=== PATIENT | male | born 1990 | race Caucasian/White ===

== ENCOUNTER 2019-10-20 18:14 | Inpatient (IN) | payer MEDICAID, OTHER ==
[~2019-10-20] VITALS: Ht 180.3 cm; Wt 66.8 kg
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
[2019-10-20] MEDS ORDERED: SODIUM CHLORIDE 0.9% 1,000ML IVBOLUS ONE (18:30)
[2019-10-20] MEDS ORDERED: ACETAMINOPHEN 325 MG TABLET PO ONE (18:30)
[2019-10-20] MEDS ORDERED: SODIUM CHLORIDE FLUSH 10ML SYR IVF ONE (18:30)
--- NOTE | 2019-10-20 18:40 | NUR ---
THIS RN IN TO START PIV, IMAGING BEDSIDE.
[2019-10-20] MEDS ORDERED: ACETAMINOPHEN 325 MG TABLET ONE (18:41)
[2019-10-20 18:49] LABS: MEAN CORPUSCULAR HEMOGLOBIN 32.4 pg (27.5-34.5); MEAN CORPUSCULAR HGB CONC 32.7 g/dL (33.2-36.2); MEAN PLATELET VOLUME 8.2 fL (7.4-10.4); PLATELET COUNT 631 x10^3/uL (130-400); RED CELL DISTRIBUTION WIDTH 13.2 % (9.4-14.8)
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
[2019-10-20 18:59] LABS: ALANINE AMINOTRANSFERASE 23 U/L (12-78); ALBUMIN 3.7 g/dL (3.4-5.0); ANION GAP 8 mmol/L (5-15); CHLORIDE 100 mmol/L (98-107); CREATININE 1.18 mg/dL (0.7-1.3)
[2019-10-20 19:00] LABS: BASOPHILS # (AUTO) 0.06 x10^3/uL (0-0.1); BASOPHILS % (AUTO) 0 % (0-1); EOSINOPHILS # (AUTO) 0.09 x10^3/uL (0-0.4); EOSINOPHILS % (AUTO) 0 % (1-7); LYMPHOCYTES # (AUTO) 1.36 x10^3/uL (1-3.4); LYMPHOCYTES % (AUTO) 7 % (22-44); MD SCAN; MONOCYTES % (AUTO) 5 % (2-9); NEUTROPHILS # (AUTO) 17.84 x10^3/uL (1.8-6.8); NEUTROPHILS % (AUTO) 88 % (42-75)
[2019-10-20 19:01] LABS: ALKALINE PHOSPHATASE 77 U/L (45-117); BILIRUBIN,TOTAL 1.6 mg/dL (0.2-1.0)
[2019-10-20] MEDS ORDERED: AMPICILLIN/SULBACTAM 3 GM in SODIUM CHLORIDE 0.9% 100 ML IV ONE (19:30)
[2019-10-20] MEDS ORDERED: VANCOMYCIN PER PHARMACY MC PRN (19:30)
[2019-10-20] MEDS ORDERED: PLEASE ENTER ALLERGIES MC SCH (19:30)
[2019-10-20] MEDS ORDERED: CEFAZOLIN PMX 1GM/50ML 50 ML IV ONE (19:30)
[2019-10-20] MEDS ORDERED: VANCOMYCIN 1,400 MG in SODIUM CHLORIDE 0.9% 250 ML IV ONE (19:30)
[2019-10-20] MEDS: NICOTINE 21 MG/24 HR PATCH.TD24 TD SCH (20:00)
[2019-10-20] MEDS ORDERED: CEFAZOLIN PMX 1GM/50ML 50 ML ONE (20:04)
--- NOTE | 2019-10-20 20:19 | NUR ---
Report given to Charley ORNELAS
[2019-10-20 21:10] VITALS: BP 95/53
[2019-10-21 00:37] VITALS: BP 108/66
[2019-10-21] MEDS: CEFAZOLIN PMX 1GM/50ML 50 ML IV SCH ×4 (04:05→20:59)
[2019-10-21 07:01] LABS: MEAN CORPUSCULAR HEMOGLOBIN 31.9 pg (27.5-34.5); MEAN CORPUSCULAR HGB CONC 31.9 g/dL (33.2-36.2); MEAN CORPUSCULAR VOLUME 100.1 fL (81-97); MEAN PLATELET VOLUME 8.1 fL (7.4-10.4); PLATELET COUNT 609 x10^3/uL (130-400); RED BLOOD COUNT 3.42 x10^6/uL (4.38-5.82); RED CELL DISTRIBUTION WIDTH 12.9 % (9.4-14.8)
[2019-10-21 07:11] LABS: ANION GAP 8 mmol/L (5-15); CALCIUM 8.3 mg/dL (8.5-10.1); CHLORIDE 108 mmol/L (98-107); CREATININE 0.88 mg/dL (0.7-1.3)
[2019-10-21 08:05] VITALS: BP 92/56
[2019-10-21 08:16] LABS: MD YES
[2019-10-21 08:18] LABS: ANISOCYTOSIS 1+; BAND#(MANUAL) 0.62 x10^3/uL; BANDS%(MANUAL) 3 % (0-7); BASOS#(MANUAL) 0.21 x10^3/uL (0-0.1); BASOS% (MANUAL) 1 % (0-1); LYMPH#(MANUAL) 2.05 x10^3/uL (1-3.4); LYMPHS% (MANUAL) 10 % (22-44); MONOS#(MANUAL) 0.82 x10^3/uL (0.3-2.7); MONOS% (MANUAL) 4 % (2-9); SEG#(MANUAL) 16.81 x10^3/uL (1.8-6.8); SEGS% (MANUAL) 82 % (42-75)
[2019-10-21 08:19] LABS: <PLATELET ESTIMATE> INCREASED; <PLT MORPHOLOGY> NORMAL PLT MORPH
[2019-10-21 12:24] VITALS: BP 98/56
[2019-10-21] MEDS: NICOTINE 21 MG/24 HR PATCH.TD24 TD SCH (19:40)
[2019-10-21 19:44] VITALS: BP 100/62
[2019-10-21] MEDS: ONDANSETRON ODT 4 MG PO PRN (19:48)
[2019-10-21] MEDS: ALUMINUM/MAG/SIMETHICONE 30 ML UDC PO PRN (23:11)
[2019-10-21] MEDS: OXYcodone IR 5MG TABLET PO PRN (23:12)
[2019-10-21] MEDS: ACETAMINOPHEN 325 MG TABLET PO PRN (23:12)
[2019-10-21] MEDS: TRAZODONE 50MG TABLET PO PRN (23:16)
[2019-10-22 03:55] VITALS: BP 104/73
[2019-10-22] MEDS: CEFAZOLIN PMX 1GM/50ML 50 ML IV SCH ×3 (04:15→20:09)
[2019-10-22] MEDS: ONDANSETRON ODT 4 MG PO PRN ×3 (04:15→20:09)
[2019-10-22 06:24] LABS: CHLORIDE 110 mmol/L (98-107)
[2019-10-22 06:34] LABS: ALANINE AMINOTRANSFERASE 24 U/L (12-78); ALBUMIN 2.5 g/dL (3.4-5.0); ALKALINE PHOSPHATASE 80 U/L (45-117); ANION GAP 8 mmol/L (5-15); BILIRUBIN,TOTAL 1.2 mg/dL (0.2-1.0); CALCIUM 8.7 mg/dL (8.5-10.1); CREATININE 0.95 mg/dL (0.7-1.3); TOTAL PROTEIN 6.9 g/dL (6.4-8.2)
[2019-10-22 07:11] LABS: MEAN CORPUSCULAR HEMOGLOBIN 32.1 pg (27.5-34.5); MEAN CORPUSCULAR HGB CONC 32.1 g/dL (33.2-36.2); MEAN CORPUSCULAR VOLUME 99.9 fL (81-97); PLATELET COUNT 604 x10^3/uL (130-400); RED BLOOD COUNT 3.87 x10^6/uL (4.38-5.82); RED CELL DISTRIBUTION WIDTH 13.6 % (9.4-14.8)
[2019-10-22 07:13] LABS: BASOPHILS # (AUTO) 0.07 x10^3/uL (0-0.1); BASOPHILS % (AUTO) 1 % (0-1); EOSINOPHILS # (AUTO) 0.42 x10^3/uL (0-0.4); EOSINOPHILS % (AUTO) 3 % (1-7); LYMPHOCYTES # (AUTO) 2.82 x10^3/uL (1-3.4); LYMPHOCYTES % (AUTO) 20 % (22-44); MD SCAN; MONOCYTES # (AUTO) 1.01 x10^3/uL (0.2-0.8); MONOCYTES % (AUTO) 7 % (2-9); NEUTROPHILS % (AUTO) 70 % (42-75)
[2019-10-22 08:02] VITALS: BP 102/63
[2019-10-22 12:09] VITALS: BP 101/64
[2019-10-22] MEDS: ALUMINUM/MAG/SIMETHICONE 30 ML UDC PO PRN ×2 (14:06→20:09)
[2019-10-22] MEDS: NICOTINE 21 MG/24 HR PATCH.TD24 TD SCH (20:09)
[2019-10-22] MEDS: OXYcodone IR 5MG TABLET PO PRN (20:09)
[2019-10-22] MEDS: ACETAMINOPHEN 325 MG TABLET PO PRN (20:09)
[2019-10-22 20:11] VITALS: BP 102/65
[2019-10-22] MEDS: TRAZODONE 50MG TABLET PO PRN (21:58)
[2019-10-23] MEDS: ACETAMINOPHEN 325 MG TABLET PO PRN
[2019-10-23 00:02] VITALS: BP 101/65
[2019-10-23] MEDS: CEFAZOLIN PMX 1GM/50ML 50 ML IV SCH ×3 (04:12→20:17)
[2019-10-23] MEDS: ONDANSETRON ODT 4 MG PO PRN ×2 (04:13→13:12)
[2019-10-23] MEDS: ALUMINUM/MAG/SIMETHICONE 30 ML UDC PO PRN (04:13)
[2019-10-23 04:19] VITALS: BP 105/67
[2019-10-23 06:25] LABS: ANION GAP 6 mmol/L (5-15); CALCIUM 8.9 mg/dL (8.5-10.1); CHLORIDE 103 mmol/L (98-107)
[2019-10-23 06:26] LABS: BASOPHILS % (AUTO) 1 % (0-1); EOSINOPHILS # (AUTO) 0.54 x10^3/uL (0-0.4); EOSINOPHILS % (AUTO) 5 % (1-7); LYMPHOCYTES # (AUTO) 3.15 x10^3/uL (1-3.4); LYMPHOCYTES % (AUTO) 32 % (22-44); MD NO; MEAN CORPUSCULAR HGB CONC 32.4 g/dL (33.2-36.2); MEAN CORPUSCULAR VOLUME 98.9 fL (81-97); MEAN PLATELET VOLUME 8.6 fL (7.4-10.4); MONOCYTES # (AUTO) 0.76 x10^3/uL (0.2-0.8); MONOCYTES % (AUTO) 8 % (2-9); NEUTROPHILS % (AUTO) 54 % (42-75); PLATELET COUNT 751 x10^3/uL (130-400); RED BLOOD COUNT 3.51 x10^6/uL (4.38-5.82); RED CELL DISTRIBUTION WIDTH 13.5 % (9.4-14.8)
[2019-10-23 09:07] VITALS: BP 98/58
[2019-10-23 13:14] VITALS: BP 98/61
[2019-10-23] MEDS: NICOTINE 21 MG/24 HR PATCH.TD24 TD SCH (20:00)
[2019-10-23 20:18] VITALS: BP 114/72
[2019-10-24 02:30] VITALS: BP 107/53
[2019-10-24] MEDS: CEFAZOLIN PMX 1GM/50ML 50 ML IV SCH ×3 (05:00→21:50)
[2019-10-24] MEDS: DOCUSATE 100 MG CAPSULE PO PRN ×2 (05:00→21:50)
[2019-10-24 05:49] LABS: BASOPHILS # (AUTO) 0.24 x10^3/uL (0-0.1); BASOPHILS % (AUTO) 2 % (0-1); EOSINOPHILS # (AUTO) 0.42 x10^3/uL (0-0.4); EOSINOPHILS % (AUTO) 4 % (1-7); LYMPHOCYTES # (AUTO) 3.27 x10^3/uL (1-3.4); LYMPHOCYTES % (AUTO) 31 % (22-44); MD NO; MEAN CORPUSCULAR HEMOGLOBIN 31.4 pg (27.5-34.5); MEAN CORPUSCULAR HGB CONC 31.5 g/dL (33.2-36.2); MEAN CORPUSCULAR VOLUME 99.6 fL (81-97); MEAN PLATELET VOLUME 8.8 fL (7.4-10.4); MONOCYTES # (AUTO) 0.74 x10^3/uL (0.2-0.8); MONOCYTES % (AUTO) 7 % (2-9); NEUTROPHILS # (AUTO) 5.76 x10^3/uL (1.8-6.8); NEUTROPHILS % (AUTO) 55 % (42-75); PLATELET COUNT 793 x10^3/uL (130-400); RED BLOOD COUNT 3.57 x10^6/uL (4.38-5.82); RED CELL DISTRIBUTION WIDTH 13.3 % (9.4-14.8)
[2019-10-24 07:25] VITALS: BP 106/62
[2019-10-24 13:06] VITALS: BP 102/61
[2019-10-24 19:46] VITALS: BP 105/63
[2019-10-24] MEDS: NICOTINE 21 MG/24 HR PATCH.TD24 TD SCH (20:00)
[2019-10-24] MEDS: ONDANSETRON ODT 4 MG PO PRN (21:50)
[2019-10-25 00:42] VITALS: BP 104/60
[2019-10-25] MEDS: CEFAZOLIN PMX 1GM/50ML 50 ML IV SCH (05:06)
[2019-10-25 05:50] LABS: BASOPHILS # (AUTO) 0.27 x10^3/uL (0-0.1); BASOPHILS % (AUTO) 3 % (0-1); EOSINOPHILS # (AUTO) 0.36 x10^3/uL (0-0.4); EOSINOPHILS % (AUTO) 4 % (1-7); LYMPHOCYTES # (AUTO) 3.17 x10^3/uL (1-3.4); LYMPHOCYTES % (AUTO) 33 % (22-44); MD NO; MEAN CORPUSCULAR HGB CONC 32.2 g/dL (33.2-36.2); MEAN CORPUSCULAR VOLUME 99.4 fL (81-97); MONOCYTES # (AUTO) 0.73 x10^3/uL (0.2-0.8); MONOCYTES % (AUTO) 8 % (2-9); NEUTROPHILS % (AUTO) 53 % (42-75); PLATELET COUNT 915 x10^3/uL (130-400); RED BLOOD COUNT 3.71 x10^6/uL (4.38-5.82)
[2019-10-25 07:17] VITALS: BP 93/57
[2019-10-25] MEDS ORDERED: CEPH-376 PO (07:34)
[2019-10-25 09:15] VITALS: BP 92/68
== END 2019-10-25 09:30 | disposition home or self-care (01) | DRG 872 ==
LOC: ED 18:58 → EDIP 19:20 → 3N 20:41 → 4NW 10-21 02:18
PROVIDERS: ADMIT Family Medicine; ATTEND Internal Medicine
DX: A41.9 Sepsis, unspecified organism (principal); L03.115 Cellulitis of right lower limb; Z20.828 Contact with and (suspected) exposure to other viral communicable diseases; F17.200 Nicotine dependence, unspecified, uncomplicated; Z59.0 Homelessness; Z88.0 Allergy status to penicillin
CPT/HCPCS: 36415; 71045; 80048; 80053; 82962; 83605; 83735; 84100; 84145; 85025; 87040; 93005; 96374; G0378; J0690; J3370; Q0162; J7030; J7050; U0001